=== PATIENT | male | born 1960 | race Caucasian/White ===

== ENCOUNTER 2017-12-24 15:52 | Emergency (ER) | payer OTHER ==
[~2017-12-24] VITALS: Ht 175.3 cm; Wt 84.8 kg
[~2017-12-24 15:52] MED LIST: FLAGYL500 MG PO; KEFLEX500 MG PO
[2017-12-24 17:24] VITALS: BP 153/96
== END 2017-12-24 17:25 | disposition home or self-care (01) ==
LOC: ER 15:52
DX: S87.02XA Crushing injury of left knee, initial encounter (principal); W23.0XXA Caught, crushed, jammed, or pinched between moving objects, initial encounter; Y93.89 Activity, other specified; Y92.89 Other specified places as the place of occurrence of the external cause; Y99.8 Other external cause status